=== PATIENT | female | born 1985 | race African-American/Black ===

== ENCOUNTER 2019-11-09 11:03 | Inpatient (IN) | payer OTHER ==
--- NOTE | 2019-11-09 11:10 | PDOC ---
History of Present Illness - General Chief Complaint: Syncope/Near Syncope Stated Complaint: PASSED OUT Time Seen by Provider: 11/09/19 11:07 - History of Present Illness Initial Comments: 11/09/19 12:02 34yo female with no pmhx presents for eval of multiple episodes of "blacking out" over the weekend. States for the last few weeks she has lost about 7 lbs unintentionally, has had urinary freq for about a week. States she feels cold all the time. Pt states she felt warm on saturday, checked her temperature and it was 99.5. States over the weekend she felt lightheaded, denies vertiginous symptoms and passed out about 4-5 times. States she was always sitting down or laying down when it would happen. Pt states nausea for about a week, no vomiting. Last bm was last night and normal. Denies cp/sob/palpitations. C/o lower leg pain. No cp/sob. No coughing. No sore throat, no rhinorrhea. No mathew. States today she was standing and when she passed out she fell to the ground landing on her back, poss hitting her head. Pt states she finished her menstrual cycle last week. No other complaints. States she has been eating normally, but complains she feels thirsty all the time. Past History - Medical History Allergies/Adverse Reactions: Allergies Allergy/AdvReac Type Severity Reaction Status Date / Time No Known Allergies Allergy Verified 11/09/19 11:05 Home Medications: Ambulatory Orders NK [No Known Home Medication] 08/23/19 COPD: No - Immunization History Immunization Up to Date: No - Psycho-Social/Smoking History Smoking History: Never smoked Have you smoked in the past 12 months: No Review of Systems - Review of Systems Able to Perform ROS?: Yes Is the patient limited Romansh proficient: No Constitutional: Yes: Fever, Unintentional Wgt. Loss. No: Chills HEENTM: No: Eye Pain, Blurred Vision, Ear Pain, Nose Congestion, Tinnitus, Thro at Pain Respiratory: Yes: Shortness of Breath. No: Cough, SOB at Rest, Wheezing, Productive cough Cardiac (ROS): Yes: Lightheadedness, Syncope. No: Chest Pain, Palpitations, Chest Tightness ABD/GI: Yes: Nausea. No: Diarrhea, Vomiting, Abdominal cramping : Yes: Frequency. No: Burning, Dysuria Musculoskeletal: No: Back Pain, Neck Pain Integumentary: No: Rash Neurological: No: Headache, Numbness, Paresthesia, Tingling, Weakness, Ataxia All Other Systems: Reviewed and Negative *Physical Exam - Vital Signs 11/09/19 12:08 Selected Entries 11/09/19 11/09/19 11/09/19 11:05 11:20 11:22 Temperature 99.6 F Pulse Rate 88 Pulse Rate [ 101 H Left side Sitting] Pulse Rate [ Left side Standing] Pulse Rate [ 85 Left side Supine] Pulse Rhythm [ Regular Apical] Respiratory 18 Rate Blood Pressure 109/64 Blood Pressure 110/66 [Left side Sitting] Blood Pressure [Left side Standing] Blood Pressure 109/59 L [Left side Supine] Blood Pressure 79 Mean O2 Sat by Pulse 100 Oximetry (%) Weight 80.286 kg 11/09/19 11:24 Temperature Pulse Rate Pulse Rate [ Left side Sitting] Pulse Rate [ 129 H Left side Standing] Pulse Rate [ Left side Supine] Pulse Rhythm [ Apical] Respiratory Rate Blood Pressure Blood Pressure [Left side Sitting] Blood Pressure 109/59 L [Left side Standing] Blood Pressure [Left side Supine] Blood Pressure Mean O2 Sat by Pulse Oximetry (%) Weight - Physical Exam General Appearance: Yes: Nourished, Appropriately Dressed, Other (ambulatory in the ER with a steady gait). No: Apparent Distress HEENT: positive: EOMI, TYLER, Normal Voice, TMs Normal, Pharynx Normal. negative: Nasal Congestion, Rhinorrhea Neck: positive: Supple. negative: Tender midline Respiratory/Chest: positive: Lungs Clear, Normal Breath Sounds. negative: Chest Tender, Respiratory Distress Cardiovascular: positive: Regular Rhythm, Regular Rate, S1, S2. negative: Edema Gastrointestinal/Abdominal: positive: Soft. negative: Guarding, Rebound, Tenderness Musculoskeletal: positive: Normal Inspection. negative: CVA Tenderness, Decreased Range of Motion Extremity: positive: Normal Capillary Refill, Normal Inspection, Normal Range of Motion, Other (finger splint to L index finger from prior tendon injury). 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, Fully Oriented, Alert, Normal Mood/Affect, Normal Response, Motor Strength 5/5 Heart Score/ECG Review - ECG Intrepretation Comment:: 11/09/19 12:09 sinus at 85, nl axis, nl interval, t wave inversions III which are nonspecific, no acute st changes ED Treatment Course - LABORATORY CBC & Chemistry Diagram: 11/09/19 11:40 11/09/19 11:40 Medical Decision Making - Medical Decision Making 11/09/19 12:10 a/p: 34yo female with syncope/urinary freq, increased thirst -concern for new onset dm vs thyroid vs viral syndrome -concern for uti -pt with + orthostatic vs -will send labs, ekg, cxr, head ct -will hydrate with ivf -will monitor on tele -given leg cramping and syncope will send dimer, no PE risk factors -will send vbg -urine preg neg, poc -will monitor and reassess 11/09/19 12:25 hgb 10 cxr clear 11/09/19 12:36 pt with uti on labs head ct neg labs pending 11/09/19 13:38 pt with 5 syncopal episodes over the weekend pt with uti and orthostatic hypotension pt agrees to stay for further eval case discussed with Silvia Lacey from [facility] who accepts pt to service 11/09/19 13:42 borderline dimer, will order ultrasound and ct pe after tsh results 11/09/19 14:[address] called poc urine preg neg 11/09/19 14:16 [facility] request consult to Dr. Sol rivera pt in ultrasound and then ct 11/09/19 15:15 no dvt 11/09/19 15:45 no dvt or pe Discharge - Discharge Information Problems reviewed: Yes Clinical Impression/Diagnosis: Syncope, UTI (urinary tract infection) Condition: Fair - Admission Yes - Follow up/Referral - Patient Discharge Instructions - Post Discharge Activity
--- NOTE | 2019-11-09 12:10 | EKG ---
Test Reason : Blood Pressure : / mmHG Vent. Rate : 085 BPM Atrial Rate : 085 BPM P-R Int : 134 ms QRS Dur : 082 ms QT Int : 356 ms P-R-T Axes : 064 072 039 degrees QTc Int : 423 ms NORMAL SINUS RHYTHM Nonspecific T changes NORMAL ECG NO PREVIOUS ECGS AVAILABLE Confirmed by Angelina Ortiz ([id number]) on 11/09/2019 12:09:53 PM Referred By: MD MCDANIEL Confirmed By:Angelina Ortiz
[2019-11-09 12:11] LABS: BASO % 0.6 % (0-2.0); EOS % 0.7 % (0-4.5); HEMOGLOBIN 10.3 GM/dl (10.7-15.3); LYMPH % 21.6 % (8-40); MCH 25.9 pg (25.7-33.7); MCHC 33.1 g/dl (32.0-36.0); MEAN CELL VOLUME 78.2 fl (80-96); MEAN PLT VOLUME 7.7 fl (7.5-11.1); NEUT % 64.1 % (42.8-82.8); PLATELET COUNT 366 K/MM3 (134-434); RBC 3.96 M/mm3 (3.60-5.2); RDW 16.4 % (11.6-15.6); WHITE BLOOD COUNT 7.7 K/mm3 (4.0-10.8)
[2019-11-09] MEDS ORDERED: SODIUM CHLORIDE 0.9% 1000 ML INFUS.BAG IV ONE ×2 (12:11)
[2019-11-09 12:25] LABS: ACTIVATED PTT 23.9 SECONDS (25.2-36.5)
[2019-11-09 12:29] LABS: INR 1.54 (0.82-1.09); PROTHROMBIN TIME (PATIENT) 17.1 SEC (10.2-13.0)
[2019-11-09 12:34] LABS: EPITHELIAL CELLS MODERATE /hpf
[2019-11-09] MEDS ORDERED: CEFTRIAXONE 1 GM in DEXTROSE 5%-WATER - 100 ML IVPB ONE (12:35)
[2019-11-09 12:36] LABS: ALBUMIN 3.6 g/dl (3.4-5.0); BILIRUBIN,TOTAL 0.5 mg/dl (0.2-1); CALCIUM 9.4 mg/dl (8.5-10); CREATININE 0.9 mg/dl (0.55-1.3); POTASSIUM 3.7 mmol/L (3.5-5.1); TOT PROT 7.7 g/dl (6.4-8.2)
[2019-11-09] MEDS ORDERED: cefTRIAXone SODIUM 1 GM VIAL ONE (12:50)
[2019-11-09 13:20] LABS: VENOUS BASE EXCESS 1.2 mmol/L (-2-2); VENOUS O2 SATURATION 61.1 % (70-80); VENOUS PCO2 43.9 mmHg (38-52); VENOUS PH 7.396 (7.310-7.410)
[2019-11-09] MEDS ORDERED: ACETAMINOPHEN 500 MG TABLET (FP) ONE (15:47)
[2019-11-09] MEDS ORDERED: ACETAMINOPHEN 500 MG TABLET (FP) PO ONE (15:47)
--- NOTE | 2019-11-09 16:08 | HP ---
CHIEF COMPLAINT: Syncope PCP: [facility] HISTORY OF PRESENT ILLNESS: 34 year-old female with a PMH significant for anemia, presents for eval of multiple episodes of "blacking out" over the weekend. States for the last few weeks she has lost about 7 lbs unintentionally, has had urinary frequency for about a week. Episodes of sweats and chills. Episodes of feeling SOB which will suddenly overtake her. She states she will be fine and then find herself gasping for air and she has to concentrate on her breathing to catch her breath. Has lost her appetite, and has altered sense of taste (cannot taste sweet). Over the weekend she felt lightheaded and passed out about 4-5 times. States today she was standing and when she passed out she fell to the ground landing on her back, possibly hitting her head. She also reports headache at the time of this admission. 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[place], cares for their 21-month old child; mother in that household goes out to work, father works out of the home; no known COVID positive exposure Smoking: no Alcohol: no Drugs: no Allergies No Known Allergies Allergy (Verified 11/09/19 11:05) HOME MEDICATIONS: Home Medications Medication Instructions Recorded NK [No Known Home Medication] 08/23/19 REVIEW OF SYSTEMS CONSTITUTIONAL: +sweats, chills, loss of appetite, weight loss, fatigue Absent: diaphoresis, generalized weakness, malaise HEENT: Absent: rhinorrhea, nasal congestion, throat pain, throat swelling, difficulty swallowing, mouth swelling, ear pain, eye pain, visual changes CARDIOVASCULAR: Absent: chest pain, syncope, palpitations, irregular heart rate, lightheadedness, peripheral edema RESPIRATORY: +shortness of breath Absent: cough, dyspnea with exertion, orthopnea, wheezing, stridor, hemoptysis GASTROINTESTINAL: +nausea Absent: abdominal pain, abdominal distension, vomiting, diarrhea, constipation, melena, hematochezia GENITOURINARY: +frequency, malodorous urine Absent: dysuria, urgency, hesitancy, hematuria, flank pain, genital pain MUSCULOSKELETAL: Absent: myalgia, arthralgia, joint swelling, back pain, neck pain SKIN: Absent: rash, itching, pallor HEMATOLOGIC/IMMUNOLOGIC: Absent: easy bleeding, easy bruising, lymphadenopathy, frequent infections ENDOCRINE: Absent: unexplained weight gain, unexplained weight loss, heat intolerance, cold intolerance NEUROLOGIC: +weakness, dizziness, syncope Absent: headache, focal weakness or paresthesias, dizziness, unsteady gait, seizure, mental status changes, bladder or bowel incontinence PSYCHIATRIC: Absent: anxiety, depression, suicidal or homicidal ideation, hallucinations. PHYSICAL EXAMINATION Vital Signs - 24 hr 11/09/19 11/09/19 11/09/19 11:05 11:20 11:22 Temperature 99.6 F Pulse Rate 88 Pulse Rate [ Apical] Pulse Rate [ 101 H Left side Sitting] Pulse Rate [ Left side Standing] Pulse Rate [ 85 Left side Supine] Respiratory 18 Rate Blood Pressure 109/64 Blood Pressure [Left Arm] Blood Pressure 110/66 [Left side Sitting] Blood Pressure [Left side Standing] Blood Pressure 109/59 L [Left side Supine] O2 Sat by Pulse 100 Oximetry (%) 11/09/19 11/09/19 11/09/19 11:24 13:34 15:45 Temperature 100.0 F H Pulse Rate Pulse Rate [ 68 84 Apical] Pulse Rate [ Left side Sitting] Pulse Rate [ 129 H Left side Standing] Pulse Rate [ Left side Supine] Respiratory 18 18 Rate Blood Pressure Blood Pressure 111/69 121/75 [Left Arm] Blood Pressure [Left side Sitting] Blood Pressure 109/59 L [Left side Standing] Blood Pressure [Left side Supine] O2 Sat by Pulse 100 100 Oximetry (%) GENERAL: Awake, alert, and fully oriented, in no acute distress. HEAD: Normal with no signs of trauma. EYES: Pupils equal, round and reactive to light, extraocular movements intact, sclera anicteric, conjunctiva clear. No lid lag. EARS, NOSE, THROAT: Ears normal, nares patent, oropharynx clear without exudates. Moist mucous membranes. NECK: Normal range of motion, supple without lymphadenopathy, JVD, or masses. LUNGS: Breath sounds equal, clear to auscultation bilaterally. No wheezes, and no crackles. No accessory muscle use. HEART: Regular rate and rhythm, normal S1 and S2 ABDOMEN: Soft, nontender, not distended, normoactive bowel sounds, no guarding, no rebound, no masses. No hepatomegaly or splenomegaly. UPPER EXTREMITIES: 2+ pulses, warm, well-perfused. No cyanosis. No clubbing. No peripheral edema. LOWER EXTREMITIES: 2+ pulses, warm, well-perfused. No calf tenderness. No peripheral edema. NEUROLOGICAL: Cranial nerves II-XII intact. Normal speech. Laboratory Results - last 24 hr 11/09/19 11/09/19 11/09/19 11:35 11:40 11:40 WBC 7.7 RBC 3.96 Hgb 10.3 L Hct 31.0 L MCV 78.2 L MCH 25.9 MCHC 33.1 RDW 16.4 H Plt Count 366 MPV 7.7 Absolute Neuts (auto) 4.9 Neutrophils % 64.1 Lymphocytes % 21.6 Monocytes % 13.0 H Eosinophils % 0.7 Basophils % 0.6 PT with INR 17.1 H INR 1.54 H PTT (Actin FS) 23.9 L D-Dimer VBG pH POC VBG pCO2 POC VBG pO2 VBG HCO3 VBG O2 Sat (Juan Jose) VBG Base Excess Sodium Potassium Chloride Carbon Dioxide Anion Gap BUN Creatinine Est GFR (CKD-EPI)AfAm Est GFR (CKD-EPI)NonAf Random Glucose Calcium Total Bilirubin AST ALT Alkaline Phosphatase Creatine Kinase Troponin I Total Protein Albumin TSH Urine Color Yellow Urine Appearance Slightly Urine pH 5.5 Urine Protein Negative Urine Glucose (UA) Negative Urine Ketones Negative Urine Blood Trace-lysed Urine Nitrite Positive H Urine Bilirubin Negative Urine Urobilinogen 0.2 Ur Leukocyte Esterase 1+ Urine RBC 2-5 Urine WBC 20-40 Ur Transition Epith Cell Moderate Urine Bacteria Many 11/09/19 11/09/19 11/09/19 11:40 11:40 11:40 WBC RBC Hgb Hct MCV MCH MCHC RDW Plt Count MPV Absolute Neuts (auto) Neutrophils % Lymphocytes % Monocytes % Eosinophils % Basophils % PT with INR INR PTT (Actin FS) D-Dimer VBG pH 7.396 POC VBG pCO2 43.9 POC VBG pO2 32.1 VBG HCO3 26.3 VBG O2 Sat (Juan Jose) 61.1 L VBG Base Excess 1.2 Sodium 138 Potassium 3.7 Chloride 104 Carbon Dioxide 23 Anion Gap 11 BUN 10.0 Creatinine 0.9 Est GFR (CKD-EPI)AfAm 98.06 Est GFR (CKD-EPI)NonAf 84.60 Random Glucose 65 L Calcium 9.4 Total Bilirubin 0.5 AST 13 L ALT 11 L Alkaline Phosphatase 44 L Creatine Kinase 56 Troponin I < 0.03 Total Protein 7.7 Albumin 3.6 TSH 0.68 Urine Color Urine Appearance Urine pH Urine Protein Urine Glucose (UA) Urine Ketones Urine Blood Urine Nitrite Urine Bilirubin Urine Urobilinogen Ur Leukocyte Esterase Urine RBC Urine WBC Ur Transition Epith Cell Urine Bacteria 11/09/19 11:48 WBC RBC Hgb Hct MCV MCH MCHC RDW Plt Count MPV Absolute Neuts (auto) Neutrophils % Lymphocytes % Monocytes % Eosinophils % Basophils % PT with INR INR PTT (Actin FS) D-Dimer 506 H VBG pH POC VBG pCO2 POC VBG pO2 VBG HCO3 VBG O2 Sat (Juan Jose) VBG Base Excess Sodium Potassium Chloride Carbon Dioxide Anion Gap BUN Creatinine Est GFR (CKD-EPI)AfAm Est GFR (CKD-EPI)NonAf Random Glucose Calcium Total Bilirubin AST ALT Alkaline Phosphatase Creatine Kinase Troponin I Total Protein Albumin TSH Urine Color Urine Appearance Urine pH Urine Protein Urine Glucose (UA) Urine Ketones Urine Blood Urine Nitrite Urine Bilirubin Urine Urobilinogen Ur Leukocyte Esterase Urine RBC Urine WBC Ur Transition Epith Cell Urine Bacteria ASSESSMENT/PLAN: 34 year-old female with PMH significant for anemia, admitted for syncope, UTI, fever, r/o COVID. Syncope --troponin neg x 3 --ECG: no acute ischemia --telemetry monitoring --echo: LV normal, RV normal, mild TR --US carotids: no significant stenosis; high speed systolic velocity both common carotids and proximal left internal carotid, may be related to HTN --cardiology following --CXR unremarkable --CTA negative for PE --US b/l LE: negative for DVT --orthostatics Microcytic anemia --Hgb 10.3, no baseline for comparison; was told 10 years ago she was anemic, has not been treated --menses are regular, LMP early last week; has IUD --iron studies LFGNB UTI --fever to 103.1 --continue ceftriaxone r/o COVID --swabbed 11/08 pending --episodes of SOB, altered taste, loss of appetite, weight loss over past few weeks, headache, fever --chest imaging unremarkable --empiric azithro started --albuterol inhaler FEN Fluids: NS@100mL/hr Electrolytes: replete as indicated Nutrition: regular diet DVT prophylaxis: subq lovenox Dispo: continues to require inpatient care. Full code. Visit type - Emergency Visit Emergency Visit: Yes ED Registration Date: 11/09/19 Care time: The patient presented to the Emergency Department on the above date and was hospitalized for further evaluation of their emergent condition. - New Patient This patient is new to me today: Yes Date on this admission: 11/10/19 - Critical Care Critical Care patient: No
[2019-11-09] MEDS ORDERED: SODIUM CHLORIDE 1,000 ML IV SCH (16:15)
[2019-11-09 19:13] VITALS: BMI 23.8
--- NOTE | 2019-11-09 23:19 | HOSP ---
Subjective - Review of Symptoms Events since last encounter: hospitalist encounter Notified by the RN that the patient reports having chest pain, was asked to assess Arrived to bedside, patient is AAOx3, reports midsternal CP increased with deep inspiration. Patient examined see EMR Plan: EKG stat Troponin I stat Cardiovascular: Yes: Chest Pain Physical Examination Vital Signs: Vital Signs Temperature 99.4 F 11/09/19 21:00 Pulse Rate 80 11/09/19 21:00 Respiratory Rate 18 11/09/19 21:00 Blood Pressure 113/64 11/09/19 21:00 O2 Sat by Pulse Oximetry (%) 100 11/09/19 21:00 Constitutional: Yes: Moderate Distress, Thin Eyes: Yes: Conjunctiva Clear, EOM Intact, PERRL HENT: Yes: WNL, Atraumatic, Normocephalic Neck: Yes: WNL, Supple, Trachea Midline Cardiovascular: Yes: Regular Rate and Rhythm, S1, S2, Other (CP reproducible on palpation) Respiratory: Yes: Diminished (bases) Gastrointestinal: Yes: Normal Bowel Sounds, Soft ...Rectal Exam: Yes: Deferred Renal/: Yes: WNL Breast(s): Yes: WNL Musculoskeletal: Yes: Muscle Pain Extremities: Yes: WNL Edema: No Peripheral Pulses WNL: Yes Neurological: Yes: Alert, Oriented, Cran Nerves II-XII Intact ...Motor Strength: WNL Psychiatric: Yes: WNL, Alert, Oriented Labs: CBC, BMP 11/09/19 11:40 11/09/19 11:40 Laboratory Results - last 24 hr 11/09/19 11/09/19 11/09/19 11:35 11:40 11:40 WBC 7.7 RBC 3.96 Hgb 10.3 L Hct 31.0 L MCV 78.2 L MCH 25.9 MCHC 33.1 RDW 16.4 H Plt Count 366 MPV 7.7 Absolute Neuts (auto) 4.9 Neutrophils % 64.1 Lymphocytes % 21.6 Monocytes % 13.0 H Eosinophils % 0.7 Basophils % 0.6 PT with INR 17.1 H INR 1.54 H PTT (Actin FS) 23.9 L D-Dimer VBG pH POC VBG pCO2 POC VBG pO2 VBG HCO3 VBG O2 Sat (Juan Jose) VBG Base Excess Sodium Potassium Chloride Carbon Dioxide Anion Gap BUN Creatinine Est GFR (CKD-EPI)AfAm Est GFR (CKD-EPI)NonAf POC Glucometer Random Glucose Hemoglobin A1c % Calcium Total Bilirubin AST ALT Alkaline Phosphatase Creatine Kinase Troponin I Total Protein Albumin TSH Serum , Qual Urine Color Yellow Urine Appearance Slightly Urine pH 5.5 Urine Protein Negative Urine Glucose (UA) Negative Urine Ketones Negative Urine Blood Trace-lysed Urine Nitrite Positive H Urine Bilirubin Negative Urine Urobilinogen 0.2 Ur Leukocyte Esterase 1+ Urine RBC 2-5 Urine WBC 20-40 Ur Transition Epith Cell Moderate Urine Bacteria Many 11/09/19 11/09/19 11/09/19 11:40 11:40 11:40 WBC RBC Hgb Hct MCV MCH MCHC RDW Plt Count MPV Absolute Neuts (auto) Neutrophils % Lymphocytes % Monocytes % Eosinophils % Basophils % PT with INR INR PTT (Actin FS) D-Dimer VBG pH 7.396 POC VBG pCO2 43.9 POC VBG pO2 32.1 VBG HCO3 26.3 VBG O2 Sat (Juan Jose) 61.1 L VBG Base Excess 1.2 Sodium 138 Potassium 3.7 Chloride 104 Carbon Dioxide 23 Anion Gap 11 BUN 10.0 Creatinine 0.9 Est GFR (CKD-EPI)AfAm 98.06 Est GFR (CKD-EPI)NonAf 84.60 POC Glucometer Random Glucose 65 L Hemoglobin A1c % Calcium 9.4 Total Bilirubin 0.5 AST 13 L ALT 11 L Alkaline Phosphatase 44 L Creatine Kinase 56 Troponin I < 0.03 Total Protein 7.7 Albumin 3.6 TSH 0.68 Serum , Qual Urine Color Urine Appearance Urine pH Urine Protein Urine Glucose (UA) Urine Ketones Urine Blood Urine Nitrite Urine Bilirubin Urine Urobilinogen Ur Leukocyte Esterase Urine RBC Urine WBC Ur Transition Epith Cell Urine Bacteria 11/09/19 11/09/19 11/09/19 11:40 11:48 17:45 WBC RBC Hgb Hct MCV MCH MCHC RDW Plt Count MPV Absolute Neuts (auto) Neutrophils % Lymphocytes % Monocytes % Eosinophils % Basophils % PT with INR INR PTT (Actin FS) D-Dimer 506 H VBG pH POC VBG pCO2 POC VBG pO2 VBG HCO3 VBG O2 Sat (Juan Jose) VBG Base Excess Sodium Potassium Chloride Carbon Dioxide Anion Gap BUN Creatinine Est GFR (CKD-EPI)AfAm Est GFR (CKD-EPI)NonAf POC Glucometer Random Glucose Hemoglobin A1c % 5.6 Calcium Total Bilirubin AST ALT Alkaline Phosphatase Creatine Kinase Troponin I < 0.03 Total Protein Albumin TSH Serum , Qual Urine Color Urine Appearance Urine pH Urine Protein Urine Glucose (UA) Urine Ketones Urine Blood Urine Nitrite Urine Bilirubin Urine Urobilinogen Ur Leukocyte Esterase Urine RBC Urine WBC Ur Transition Epith Cell Urine Bacteria 11/09/19 11/09/19 11/09/19 21:24 23:30 23:30 WBC RBC Hgb Hct MCV MCH MCHC RDW Plt Count MPV Absolute Neuts (auto) Neutrophils % Lymphocytes % Monocytes % Eosinophils % Basophils % PT with INR INR PTT (Actin FS) D-Dimer VBG pH POC VBG pCO2 POC VBG pO2 VBG HCO3 VBG O2 Sat (Juan Jose) VBG Base Excess Sodium Potassium Chloride Carbon Dioxide Anion Gap BUN Creatinine Est GFR (CKD-EPI)AfAm Est GFR (CKD-EPI)NonAf POC Glucometer 96 Random Glucose Hemoglobin A1c % Calcium Total Bilirubin AST ALT Alkaline Phosphatase Creatine Kinase Troponin I < 0.03 Total Protein Albumin TSH Serum , Qual Negative Urine Color Urine Appearance Urine pH Urine Protein Urine Glucose (UA) Urine Ketones Urine Blood Urine Nitrite Urine Bilirubin Urine Urobilinogen Ur Leukocyte Esterase Urine RBC Urine WBC Ur Transition Epith Cell Urine Bacteria Current Medications Generic Name Dose Route Start Last Admin Trade Name Freq PRN Reason Stop Dose Admin Acetaminophen 650 mg 11/10/19 00:00 Tylenol - PO Q6H PRN PAIN LEVEL 4 - 6 Sodium Chloride 1,000 mls @ 100 mls/hr 11/09/19 16:15 11/09/19 17:22 Normal Saline - IV 100 mls/hr [facility] Administration Hospitalist Encounter Assessment: This is a 34 y/o female with no significant PMHx. Admitted for Syncope, Anemia. COVID PCR-pending Outcome: EKG reviewed- NSR no ST or TWI. Troponin I #3 <0.03, Patient now febrile 103.0- Tylenol ordered, COVID labs, Lactic Acid, Azithromycin one dose now Will advise Day Team of overnight events, will continue to monitor. Critical Care Total Critical Care Time (in minutes): 35 Critical Care Statement: The care of this patient involved high complexity decision making to prevent further life threatening deterioration of the pat ient's condition and/or to evaluate & treat vital organ system(s) failure or risk of failure.
[2019-11-09] MEDS ORDERED: ACETAMINOPHEN 325 MG TABLET (FP) PO PRN (23:59)
[2019-11-09] MEDS ORDERED: ACETAMINOPHEN INJECTION 100 ML IVPB ONE (23:59)
[2019-11-10] MEDS ORDERED: ACETAMINOPHEN 500 MG TABLET (FP) PO ONE
[2019-11-10] MEDS ORDERED: AZITHROMYCIN IVPB 500 MG in DEXTROSE 5%-WATER - 250 ML IVPB ONE (00:03)
[2019-11-10] MEDS ORDERED: AZITHROMYCIN IVPB 500 MG/250 ML BAG IVPB ONE (00:30)
[2019-11-10 08:17] LABS: BASO % 0.5 % (0-2.0); EOS % 1.2 % (0-4.5); HEMATOCRIT 30.2 % (32.4-45.2); HEMOGLOBIN 9.5 GM/dl (10.7-15.3); LYMPH % 27.8 % (8-40); MCH 25.3 pg (25.7-33.7); MCHC 31.6 g/dl (32.0-36.0); MEAN CELL VOLUME 80.2 fl (80-96); MONO % 13.5 % (3.8-10.2); PLATELET COUNT 293 K/MM3 (134-434); RBC 3.76 M/mm3 (3.60-5.2); WHITE BLOOD COUNT 6.1 K/mm3 (4.0-10.8)
[2019-11-10 08:20] LABS: BILIRUBIN,TOTAL 0.4 mg/dl (0.2-1); CALCIUM 8.6 mg/dl (8.5-10); CREATININE 0.7 mg/dl (0.55-1.3); PHOSPHOROUS 3.9 mg/dl (2.5-4.9); POTASSIUM 3.9 mmol/L (3.5-5.1); TOT PROT 6.6 g/dl (6.4-8.2)
[2019-11-10] MEDS ORDERED: SODIUM CHLORIDE 1,000 ML IV STA (10:13)
[2019-11-10] MEDS ORDERED: CEFTRIAXONE 1 GM in DEXTROSE 5%-WATER - 50 ML IVPB SCH (10:30)
--- NOTE | 2019-11-10 11:01 | CON.CARD ---
Consult Consult Specialty:: Cardiology Referred by:: Medicine Reason for Consultation:: syncope, chest pain - History of Present Illness Chief Complaint: syncope History of Present Illness: 34 F no significant PMH p/w episodes of blacking out prior to admission. Over last few weeks lost 7 lbs, had increased urinary frequency over the last week and felt cold. On Saturday had temp 99.5, over the weekend felt lightheaded and passed out 4-5 times while sitting or lying down. On day of admission was standing and fell to the ground after passing out. no prior syncopal episodes. Had epsode of chest pain last night when taking deep breaths. CTA chest neg for PE. This morning feels tired, no chest pain, palps, dizziness, dyspnea - Past Medical History ...LMP: 11/01/19 ...: No - Alcohol/Substance Use Hx Alcohol Use: No - Smoking History Smoking history: Never smoked Have you smoked in the past 12 months: No Home Medications - Allergies Allergies/Adverse Reactions: Allergies Allergy/AdvReac Type Severity Reaction Status Date / Time No Known Allergies Allergy Verified 11/09/19 11:05 - Home Medications Home Medications: Ambulatory Orders NK [No Known Home Medication] 08/23/19 Family Medical History Family History: Unremarkable Review of Systems - Review of Systems Constitutional: reports: No Symptoms Eyes: reports: No Symptoms HENT: reports: No Symptoms Neck: reports: No Symptoms Cardiovascular: reports: No Symptoms Respiratory: reports: No Symptoms Gastrointestinal: reports: No Symptoms Genitourinary: reports: No Symptoms Musculoskeletal: reports: No Symptoms Integumentary: reports: No Symptoms Neurological: reports: No Symptoms Endocrine: reports: No Symptoms Hematology/Lymphatic: reports: No Symptoms Psychiatric: reports: No Symptoms Vital Signs: Vital Signs Temperature 98.4 F 11/10/19 06:00 Pulse Rate 61 11/10/19 06:00 Respiratory Rate 18 11/10/19 06:00 Blood Pressure 91/50 L 11/10/19 06:00 O2 Sat by Pulse Oximetry (%) 99 11/10/19 06:00 Constitutional: Yes: Well Nourished, No Distress, Calm Eyes: Yes: Conjunctiva Clear, EOM Intact HENT: Yes: Atraumatic, Normocephalic Neck: Yes: Supple, Trachea Midline Respiratory: Yes: Regular, CTA Bilaterally Gastrointestinal: Yes: Normal Bowel Sounds, Soft Cardiovascular: Yes: Regular Rate and Rhythm JVD: No Heart Sounds: Yes: S1, S2 Musculoskeletal: No: Back Pain Extremities: No: Cold Edema: No Integumentary: No: Jaundice Neurological: Yes: Alert, Oriented Psychiatric: No: Agitated - Other Data Labs, Other Data: CBC, BMP 11/10/19 07:08 11/10/19 07:08 INR, PTT INR 1.54 (0.82-1.09) H 11/09/19 11:40 Troponin, BNP 11/09/19 11/09/19 11/09/19 11:40 17:45 23:30 Troponin I < 0.03 < 0.03 < 0.03 Troponin, BNP 11/09/19 11/09/19 11/09/19 11:40 17:45 23:30 Troponin I < 0.03 < 0.03 < 0.03 Assessment/Plan EKG: sinus, nl intervals, no ischemic changes CTA chest: no PE, no acute pathology tele: sinus, ST syncope - trop neg x 3, EKG no ischemic changes - not c/w ACS - echo pending - carotid ultrasound no significant stenosis - likely vasovagal vs orthostatic in setting of underlying infection - infectious workup per primary, COVID pending UTI - abx per primary anemia - manage per primary
[2019-11-10] MEDS ORDERED: cefTRIAXone SODIUM 1 GM VIAL ONE (11:17)
[2019-11-10] MEDS ORDERED: DEXTROSE 5%-WATER - 50 ML IVPB ONE (11:17)
--- NOTE | 2019-11-10 12:06 | EKG ---
Test Reason : Blood Pressure : / mmHG Vent. Rate : 091 BPM Atrial Rate : 091 BPM P-R Int : 128 ms QRS Dur : 076 ms QT Int : 342 ms P-R-T Axes : 070 079 044 degrees QTc Int : 420 ms NORMAL SINUS RHYTHM NORMAL ECG WHEN COMPARED WITH ECG OF 09-NOV-2019 11:26, NO SIGNIFICANT CHANGE WAS FOUND Confirmed by MD Wang Daniel ([id number]) on 11/10/2019 12:05:39 PM Referred By: PAPO TONY Confirmed By:Chip Wang MD
--- NOTE | 2019-11-10 12:44 | ECHO ---
Name: GRICELDA MOREIRA Exam:Adult Echocardiogram Study Date: 11/10/2019 09:28 AM Age: 34 yrs Height: 73 in Weight: 179 lb BSA: 2.0 m2 MMode/2D Measurements & Calculations IVSd: 0.81 cm Ao root diam: 2.6 cm LVIDd: 4.8 cm LA dimension: 2.9 cm LVIDs: 3.2 cm ACS: 1.8 cm LVPWd: 0.79 cm EDV(Teich): 108.3 ml LVOT diam: 2.0 cm ESV(Teich): 42.2 ml Doppler Measurements & Calculations MV E max luis: 72.9 cm/sec MV A max luis: 62.4 cm/sec MV dec slope: 457.1 cm/sec2 MV E/A: 1.2 Ao V2 max: 111.0 cm/sec LV V1 max P.5 mmHg Ao max P.9 mmHg LV V1 mean P.0 mmHg Ao V2 mean: 77.5 cm/sec LV V1 max: 94.2 cm/sec Ao mean P.7 mmHg LV V1 mean: 65.5 cm/sec Ao V2 VTI: 20.6 cm LV V1 VTI: 16.8 cm RYAN(I,D): 2.7 cm2 RYAN(V,D): 2.8 cm2 SV(LVOT): 55.3 ml TR max luis: 164.0 cm/sec TR max P.9 mmHg PA V2 max: 79.8 cm/sec PA max P.6 mmHg Left Ventricle The left ventricular size, thickness and function are normal. Ejection Fraction = 61. Right Ventricle The right ventricle is normal in size and function. Atria Normal left and right atrial size and function. Mitral Valve The mitral valve is normal in structure and function. Tricuspid Valve The tricuspid valve is normal in structure and function. There is mild tricuspid regurgitation. PASP 18 mmHg. Aortic Valve The aortic valve is normal in structure and function. Pulmonic Valve The pulmonic valve is normal in structure and function. Great Vessels The aortic root is normal size. Pericardium/Pleura There is no pericardial effusion. Interpretation Summary The left ventricular size, thickness and function are normal Ejection Fraction = 61. The right ventricle is normal in size and function. Normal left and right atrial size and function. The mitral valve is normal in structure and function. The tricuspid valve is normal in structure and function. There is mild tricuspid regurgitation. PASP 18 mmHg The aortic valve is normal in structure and function. The pulmonic valve is normal in structure and function. The aortic root is normal size. There is no pericardial effusion. MD Chip Wang 11/10/2019 12:43 PM
--- NOTE | 2019-11-10 13:22 | PN ---
Physical Exam: SUBJECTIVE: Patient seen and examined OBJECTIVE: Vital Signs Period Temp Pulse Resp BP Sys/Amador Pulse Ox Last 24 Hr 98.3 F-103.1 F 61-93 17-18 91-121/50-75 95-100 GENERAL: The patient is awake, alert, and fully oriented, in no acute distress. HEAD: Normal with no signs of trauma. EYES: PERRL, extraocular movements intact, sclera anicteric, conjunctiva clear. No ptosis. ENT: Ears normal, nares patent, oropharynx clear without exudates, moist mucous membranes. NECK: Trachea midline, full range of motion, supple. LUNGS: Breath sounds equal, clear to auscultation bilaterally, no wheezes, no crackles, no accessory muscle use. HEART: Regular rate and rhythm, S1, S2 without murmur, rub or gallop. ABDOMEN: Soft, nontender, nondistended, normoactive bowel sounds, no guarding, no rebound, no hepatosplenomegaly, no masses. EXTREMITIES: 2+ pulses, warm, well-perfused, no edema. NEUROLOGICAL: Cranial nerves II through XII grossly intact. Normal speech, gait not observed. PSYCH: Normal mood, normal affect. SKIN: Warm, dry, normal turgor, no rashes or lesions noted Laboratory Results - last 24 hr 11/09/19 11/09/19 11/09/19 11:39 11:40 11:40 WBC RBC Hgb Hct MCV MCH MCHC RDW Plt Count MPV Absolute Neuts (auto) Neutrophils % Lymphocytes % Monocytes % Eosinophils % Basophils % D-Dimer Sodium Potassium Chloride Carbon Dioxide Anion Gap BUN Creatinine Est GFR (CKD-EPI)AfAm Est GFR (CKD-EPI)NonAf POC Glucometer Random Glucose Hemoglobin A1c % 5.6 Lactic Acid Calcium Phosphorus Magnesium Ferritin Total Bilirubin AST ALT Alkaline Phosphatase LD Total Troponin I C-Reactive Protein Total Protein Albumin TSH 0.68 Serum , Qual POC Urine HCG, Qual Negative 11/09/19 11/09/19 11/09/19 11:48 17:42 17:45 WBC RBC Hgb Hct MCV MCH MCHC RDW Plt Count MPV Absolute Neuts (auto) Neutrophils % Lymphocytes % Monocytes % Eosinophils % Basophils % D-Dimer 506 H Sodium Potassium Chloride Carbon Dioxide Anion Gap BUN Creatinine Est GFR (CKD-EPI)AfAm Est GFR (CKD-EPI)NonAf POC Glucometer 119 Random Glucose Hemoglobin A1c % Lactic Acid Calcium Phosphorus Magnesium Ferritin Total Bilirubin AST ALT Alkaline Phosphatase LD Total Troponin I < 0.03 C-Reactive Protein Total Protein Albumin TSH Serum , Qual POC Urine HCG, Qual 11/09/19 11/09/19 11/09/19 21:24 23:30 23:30 WBC RBC Hgb Hct MCV MCH MCHC RDW Plt Count MPV Absolute Neuts (auto) Neutrophils % Lymphocytes % Monocytes % Eosinophils % Basophils % D-Dimer Sodium Potassium Chloride Carbon Dioxide Anion Gap BUN Creatinine Est GFR (CKD-EPI)AfAm Est GFR (CKD-EPI)NonAf POC Glucometer 96 Random Glucose Hemoglobin A1c % Lactic Acid Calcium Phosphorus Magnesium Ferritin Total Bilirubin AST ALT Alkaline Phosphatase LD Total Troponin I < 0.03 C-Reactive Protein Total Protein Albumin TSH Serum , Qual Negative POC Urine HCG, Qual 11/10/19 11/10/19 11/10/19 02:20 05:59 07:08 WBC 6.1 RBC 3.76 Hgb 9.5 L Hct 30.2 L MCV 80.2 MCH 25.3 L MCHC 31.6 L RDW 16.0 H Plt Count 293 MPV 8.0 Absolute Neuts (auto) 3.5 Neutrophils % 57.0 Lymphocytes % 27.8 Monocytes % 13.5 H Eosinophils % 1.2 Basophils % 0.5 D-Dimer Sodium Potassium Chloride Carbon Dioxide Anion Gap BUN Creatinine Est GFR (CKD-EPI)AfAm Est GFR (CKD-EPI)NonAf POC Glucometer 102 72 Random Glucose Hemoglobin A1c % Lactic Acid Calcium Phosphorus Magnesium Ferritin Total Bilirubin AST ALT Alkaline Phosphatase LD Total Troponin I C-Reactive Protein Total Protein Albumin TSH Serum , Qual POC Urine HCG, Qual 11/10/19 11/10/19 11/10/19 07:08 07:08 07:08 WBC RBC Hgb Hct MCV MCH MCHC RDW Plt Count MPV Absolute Neuts (auto) Neutrophils % Lymphocytes % Monocytes % Eosinophils % Basophils % D-Dimer 548 H Sodium 138 Potassium 3.9 Chloride 105 Carbon Dioxide 23 Anion Gap 10 BUN 8.0 Creatinine 0.7 Est GFR (CKD-EPI)AfAm 132.87 Est GFR (CKD-EPI)NonAf 114.64 POC Glucometer Random Glucose 90 Hemoglobin A1c % Lactic Acid Calcium 8.6 Phosphorus 3.9 Magnesium 2.0 Ferritin 38.7 Total Bilirubin 0.4 AST 11 L ALT 10 L Alkaline Phosphatase 43 L LD Total 95 Troponin I C-Reactive Protein 7.3 H Total Protein 6.6 Albumin 3.0 L TSH Serum , Qual POC Urine HCG, Qual 11/10/19 07:08 WBC RBC Hgb Hct MCV MCH MCHC RDW Plt Count MPV Absolute Neuts (auto) Neutrophils % Lymphocytes % Monocytes % Eosinophils % Basophils % D-Dimer Sodium Potassium Chloride Carbon Dioxide Anion Gap BUN Creatinine Est GFR (CKD-EPI)AfAm Est GFR (CKD-EPI)NonAf POC Glucometer Random Glucose Hemoglobin A1c % Lactic Acid 0.7 Calcium Phosphorus Magnesium Ferritin Total Bilirubin AST ALT Alkaline Phosphatase LD Total Troponin I C-Reactive Protein Total Protein Albumin TSH Serum , Qual POC Urine HCG, Qual Active Medications Generic Name Dose Route Start Last Admin Trade Name Freq PRN Reason Stop Dose Admin Acetaminophen 650 mg 11/10/19 00:00 Tylenol - PO Q6H PRN PAIN LEVEL 4 - 6 Sodium Chloride 1,000 mls @ 100 mls/hr 11/09/19 16:15 11/09/19 17:22 Normal Saline - IV 100 mls/hr ASDIR ALEAH Administration Ceftriaxone Sodium 1 gm/ 50 mls @ 100 mls/hr 11/10/19 10:30 11/10/19 11:26 Dextrose IVPB 100 mls/hr DAILY ALEAH Administration Protocol Azithromycin 250 mg/ Dextrose 250 mls @ 250 mls/hr 11/10/19 22:00 IVPB 11/13/19 22:59 DAILY@2200 [facility] ASSESSMENT/PLAN:
[2019-11-10] MEDS: ALBUTEROL SO4 HFA INHALER IH SCH ×3 (16:26→22:07)
[2019-11-10] MEDS: ENOXAPARIN NA (PORCINE) 40 MG/0.4 ML DISP.SYRIN SQ SCH (16:26)
[2019-11-10] MEDS ORDERED: ACETAMINOPHEN 325 MG TABLET (FP) PO PRN ×3 (16:36→20:34)
[2019-11-10] MEDS: SODIUM CHLORIDE 1,000 ML IV SCH (19:08)
--- NOTE | 2019-11-10 21:43 | HOSP ---
Subjective - Review of Symptoms Events since last encounter: hospitalist encounter Patient transferred from [facility] to Telemetry for Chest Pain, Tachycardia, and Suspected COVID-19 Infection Physical Examination Vital Signs: Vital Signs Temperature 100.7 F H 11/10/19 18:00 Pulse Rate 96 H 11/10/19 18:00 Respiratory Rate 18 11/10/19 18:00 Blood Pressure 107/64 11/10/19 18:00 O2 Sat by Pulse Oximetry (%) 99 11/10/19 16:00 Constitutional: Yes: Well Nourished, No Distress, Calm, Thin Eyes: Yes: Conjunctiva Clear, EOM Intact, PERRL HENT: Yes: WNL, Atraumatic, Normocephalic Neck: Yes: WNL, Supple, Trachea Midline Cardiovascular: Yes: WNL, Regular Rate and Rhythm, S1, S2 Respiratory: Yes: WNL, Regular, CTA Bilaterally Gastrointestinal: Yes: WNL, Normal Bowel Sounds, Soft ...Rectal Exam: Yes: Deferred Renal/: Yes: WNL Breast(s): Yes: WNL Musculoskeletal: Yes: WNL Extremities: Yes: WNL Edema: No Peripheral Pulses WNL: Yes Neurological: Yes: WNL, Alert, Oriented, Cran Nerves II-XII Intact ...Motor Strength: WNL Psychiatric: Yes: WNL, Alert, Oriented Labs: CBC, BMP 11/10/19 07:08 11/10/19 07:08 Hospitalist Encounter Assessment: 34 year-old female with PMH significant for anemia, admitted for syncope, UTI, fever, r/o COVID. Syncope --troponin neg x 3 --ECG: no acute ischemia --telemetry monitoring --echo: LV normal, RV normal, mild TR --US carotids: no significant stenosis; high speed systolic velocity both common carotids and proximal left internal carotid, may be related to HTN --cardiology following --CXR unremarkable --CTA negative for PE --US b/l LE: negative for DVT --orthostatics Microcytic anemia --Hgb 10.3, no baseline for comparison; was told 10 years ago she was anemic, has not been treated --menses are regular, LMP early last week; has IUD --iron studies LFGNB UTI --fever to 103.1 --continue ceftriaxone r/o COVID --swabbed 11/08 pending --episodes of SOB, altered taste, loss of appetite, weight loss over past few weeks, headache, fever --chest imaging unremarkable --empiric azithro started --albuterol inhaler FEN Fluids: NS@100mL/hr Electrolytes: replete as indicated Nutrition: regular diet DVT prophylaxis: subq lovenox Dispo: continues to require inpatient care. Full code. Critical Care Total Critical Care Time (in minutes): 32 Critical Care Statement: The care of this patient involved high complexity decision making to prevent further life threatening deterioration of the patient's condition and/or to evaluate & treat vital organ system(s) failure or risk of failure.
[2019-11-10] MEDS ORDERED: PT OWN MED DRAWER 7, Y5N ONE (21:54)
[2019-11-10] MEDS ORDERED: AZITHROMYCIN IVPB 250 MG in DEXTROSE 5%-WATER - 250 ML IVPB SCH (22:00)
[2019-11-11] MEDS: ALBUTEROL SO4 HFA INHALER IH SCH ×6 (02:31→22:03)
[2019-11-11] MEDS: SODIUM CHLORIDE 1,000 ML IV SCH ×2 (06:33→17:35)
[2019-11-11 07:24] LABS: BASO % 0.6 % (0-2.0); EOS % 1.8 % (0-4.5); HEMATOCRIT 30.3 % (32.4-45.2); HEMOGLOBIN 9.6 GM/dL (10.7-15.3); LYMPH % 21.9 % (8-40); MCH 25.4 pg (25.7-33.7); MCHC 31.8 g/dl (32.0-36.0); MEAN CELL VOLUME 79.9 fl (80-96); MEAN PLT VOLUME 7.9 fl (7.5-11.1); MONO % 11.6 % (3.8-10.2); NEUT % 64.1 % (42.8-82.8); PLATELET COUNT 263 K/MM3 (134-434); RBC 3.79 M/mm3 (3.60-5.2); RDW 16.7 % (11.6-15.6); WHITE BLOOD COUNT 6.7 K/mm3 (4.0-10.0)
[2019-11-11 07:59] LABS: BILIRUBIN,TOTAL 0.3 mg/dL (0.2-1); BLOOD UREA NITROGEN 8.4 mg/dL (7-18); CALCIUM 8.8 mg/dL (8.5-10.1); CREATININE 0.6 mg/dL (0.55-1.3); MAGNESIUM 2.2 mg/dL (1.8-2.4); POTASSIUM 3.8 mmol/L (3.5-5.1)
[2019-11-11] MEDS ORDERED: DEXTROSE 5%-WATER - 50 ML IVPB ONE (09:36)
[2019-11-11] MEDS ORDERED: cefTRIAXone SODIUM 1 GM VIAL ONE (09:36)
[2019-11-11] MEDS: ENOXAPARIN NA (PORCINE) 40 MG/0.4 ML DISP.SYRIN SQ SCH (09:38)
[2019-11-11] MEDS: ZINC SULFATE 220 MG CAPSULE (FP) PO SCH (09:38)
[2019-11-11] MEDS: CEFTRIAXONE 1 GM in DEXTROSE 5%-WATER - 50 ML IVPB SCH (09:38)
[2019-11-11] MEDS ORDERED: MULTIVITAMINS (DAILY MVI) TABLET (FP) PO SCH (10:00)
[2019-11-11] MEDS: FERROUS SO4 325 MG TABLET (FP) PO SCH (10:52)
[2019-11-11] MEDS: ASCORBIC ACID 500 MG TABLET (FP) PO SCH (10:52)
--- NOTE | 2019-11-11 11:19 | PN ---
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[email or web address]- Saturday had some lowgraade fever and came home early from work Saturday felt fatigue, no cough, has not had a good appetite for 2 weeks now no nausea or vomiting no diarrhea no sore throat felt improved on Saturday on Saturday fainted at home and was brought to ED notes urinary frequency now with positive urine cultures chest cta no PE, no infiltrates agreeable to HIV testing- will order fevers secondary to UTI UTI- continue rocephin, switch to po bactrim when ready for discharge d/c zithromax f/u covid 19 pcr- isolation for now--elevated inflammatory makres, if negative will need to be addressed as outpt syncope- per cardiolgy, multifactorial Problem List - Problems (1) Fever Code(s): R50.9 - FEVER, UNSPECIFIED (2) UTI (urinary tract infection) Code(s): N39.0 - URINARY TRACT INFECTION, SITE NOT SPECIFIED (3) Syncope Code(s): R55 - SYNCOPE AND COLLAPSE
--- NOTE | 2019-11-11 11:55 | PN ---
Progress Note (short form) - Note Progress Note: cc: syncope, chest pain s: no chest pain, palps, dizziness, dyspnea, syncope. feels better today Current Medications Generic Name Dose Route Start Last Admin Trade Name Morgan PRN Reason Stop Dose Admin Acetaminophen 650 mg 11/10/19 20:34 Tylenol - PO Q6H PRN FEVER Albuterol Sulfate 2 puff 11/10/19 13:45 11/11/19 09:38 Ventolin Hfa Inhaler - IH 2 puff Q4H ALEAH Administration Ascorbic Acid 500 mg 11/11/19 10:45 11/11/19 10:52 Vitamin C - PO 500 mg DAILY ALEAH Administration Enoxaparin Sodium 40 mg 11/10/19 13:45 11/11/19 09:38 Lovenox - SQ 40 mg DAILY ALEAH Administration Ferrous Sulfate 325 mg 11/11/19 10:45 11/11/19 10:52 Feosol - PO 325 mg DAILY ALEAH Administration Azithromycin 250 mg/ Dextrose 250 mls @ 250 mls/hr 11/10/19 22:00 11/10/19 22:07 IVPB 11/13/19 22:59 250 mls/hr DAILY@2200 ALEAH Administration Ceftriaxone Sodium 1 gm/ 50 mls @ 100 mls/hr 11/11/19 10:00 11/11/19 09:38 Dextrose IVPB 100 mls/hr DAILY ALEAH Administration Protocol Sodium Chloride 1,000 mls @ 100 mls/hr 11/10/19 16:36 11/11/19 06:33 Normal Saline - IV 100 mls/hr ASDIR ALEAH Administration Zinc Sulfate 220 mg 11/11/19 10:00 11/11/19 09:38 Orazinc - PO 220 mg DAILY ALEAH Administration Vital Signs Period Temp Pulse Resp BP Sys/Amador Pulse Ox Last 24 Hr 98 F-100.7 F 68-96 18-18 89-116/56-66 99-100 Constitutional: Yes: Well Nourished, No Distress, Calm Eyes: Yes: Conjunctiva Clear, EOM Intact HENT: Yes: Atraumatic, Normocephalic Neck: Yes: Supple, Trachea Midline Respiratory: Yes: Regular, CTA Bilaterally Gastrointestinal: Yes: Normal Bowel Sounds, Soft Cardiovascular: Yes: Regular Rate and Rhythm JVD: No Heart Sounds: Yes: S1, S2 Musculoskeletal: No: Back Pain Extremities: No: Cold Edema: No Integumentary: No: Jaundice Neurological: Yes: Alert, Oriented Psychiatric: No: Agitated Assessment/Plan EKG: sinus, nl intervals, no ischemic changes CTA chest: no PE, no acute pathology echo 11/2019 nl LV/RV function, mild TR tele: sinus, ST syncope - trop neg x 3, EKG no ischemic changes - not c/w ACS - echo unremarkable - carotid ultrasound no significant stenosis - likely vasovagal vs orthostatic in setting of underlying infection - infectious workup per primary, COVID pending - dc tele UTI - abx per primary anemia - manage per primary
--- NOTE | 2019-11-11 13:06 | PN ---
Teaching Attending Note Name of Resident: Yefri Webster ATTENDING PHYSICIAN STATEMENT I saw and evaluated the patient. I reviewed the resident's note and discussed the case with the resident. I agree with the resident's findings and plan as documented. SUBJECTIVE: Seen and examined at bedside. Patient denies chest pain shortness of breath, pa lpitations, dizziness at time of exam. Urine culture positive for pansensitive E. coli. Patient reports intermittent feeling as if her chest is tight and her "heart is working overtime." Low-grade fevers overnight. Syncope work-up negative. Patient downgraded from telemetry. Pending COVID test. OBJECTIVE: Last Vital Signs Temp Pulse Resp BP Pulse Ox 98.3 F 85 18 111/60 99 11/11/19 08:50 11/11/19 08:50 11/11/19 08:50 11/11/19 08:50 11/11/19 08:00 PE: per resident note Labs/Imaging: reviewed ASSESSMENT AND PLAN: 34-year-old female past medical history of anemia presents with syncope, fevers, loss of taste, and found to have a UTI. Pending COVID work-up. #Syncope Likely represents manifestations of acute illness from UTI and possibly COVID. CTA, carotid ultrasound, telemetry all negative, Pending orthostatics Seen by cardiology: Cleared for downgrade to floor #Urinary tract infection Culture positive for pansensitive E. coli switch to nitrofuratoin, discontinue ceftriaxone #Rule out COVID Concerning symptoms include fever, elevated d-dimer, CRP, INR, malaise and loss of taste. CT chest without infiltrates Follow-up COVID test Azithromycin, vitamins, Full dose anticoagulation pending positive results #Iron deficiency anemia Oral iron therapy Obtain menstrual history
[2019-11-11] MEDS ORDERED: ENOXAPARIN NA (PORCINE) 40 MG/0.4 ML DISP.SYRIN SQ ONE (16:07)
--- NOTE | 2019-11-11 18:52 | CONS ---
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 She works in [email or web address] and has been doing a 1 to 1 with 1 child there. On Saturday, she developed a low-grade fever while she was there Saturday morning. She came home. She subsequently felt fatigued, no cough, had some myalgia, this was on Saturday. On Saturday, she actually felt a little bit better. She reports that for about 2 weeks she really has not had any appetite and has been eating poorly. She reports about a 5-pound weight loss. On Saturday, she was feeling better. She has 2 children, a 3-year-old and a 15-year-old. Her 3-year-old asked her to get something from the kitchen. On her return back to laying down, she reports that she passed out and fell to the floor. She was brought to the emergency room for further evaluation. She reports she has had a poor appetite. She has noted urinary frequency and wondered if she had a UTI. She has no back pain. She has no sore throat. She has not had any cough or shortness of breath. PAST MEDICAL HISTORY: Notable for anemia. She has had a finger laceration. She has 2 children, 15 and 3. She had a for the 2nd child. SOCIAL HISTORY: She lives with her and her 2 children. She is originally from [place]. She has been here for 2 years now. has been working from home. She has been going to [email or web address] daily. 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 She works as a [employer]. She denies any cigarette, alcohol, or substance use. Reports the last time she was HIV tested, she was HIV negative. No cigarette, alcohol, or substance use. No known drug allergies. She has had no travel out of the area, and does not take any medications regularly. REVIEW OF SYSTEMS: Notable for the loss of appetite and the urinary frequency. She has had no diarrhea. She has had no vomiting, cough, or shortness of breath, and no sick contacts. PHYSICAL EXAMINATION: Vital Signs: Temperature 98.3, pulse 76, blood pressure 111/60, respiratory rate 18, she is saturating 99% on room air. This is hospital day number 3. Her fever was as high as 103 on the 7th. HEENT: Normocephalic. Eyes are anicteric. She had braces. She has no pharyngitis or thrush. She has had no recent dental work. Neck: Supple. Lungs: Clear to auscultation. Heart: Regular rate and rhythm. Abdomen: She has no CVA or suprapubic pain. Extremities: Without edema. Skin: Without rash. She reports she had a rash on both her ankles about a month ago that resolved. LABORATORY: White count is 6.7, hemoglobin 9.6, platelets are 263. Her D-dimer is 759. BUN and creatinine are 8 and 0.6 with normal LFTs. CRP is 8. Urinalysis had 20 white cells. test is negative. COVID serology is pending. Urine culture is a pansensitive E. coli. Multiple imaging studies, she had a CTA of her chest that showed no evidence of PE or acute pathology. She had duplex of her leg that was negative. She had carotid study that was negative as well. She had an echo that was normal. IMPRESSION: 1. In summary, this is a 34-year-old woman, fever secondary to Escherichia coli urinary tract infection. Would continue Rocephin, switch to oral Bactrim when ready for discharge. Would stop the Zithromax. Follow up the COVID PCR with the loss of taste and the elevated inflammatory markers, this is certainly a consideration. 2. Syncope management Procardia multifactorial. Michael [id number]
--- NOTE | 2019-11-11 20:27 | PN ---
Physical Exam: SUBJECTIVE: 34 year old female patient with past medical history of anemia, who presented to the ED due to syncope, seen and examined at bedside. The patient reported how since May she has had lightheadedness, a feeling of a fast heart rate, and headaches that come and go together. She reports that some days she feels fine, while others she feels these symptoms. She reports that she has had these types of symptoms in the past as a teenager, but that the symptoms went away until this May when the symptoms came back. The symptoms are not affected by location and are not affected by the season. Over the weekend the patient passed out 4 or 5 times but only for a few seconds each time. She decided to go to the ED because she felt she needed to get worked up for her symptoms. Today the patient reported feeling fine and denied lightheadedness, shortness of breath, palpitations, a feeling of a fast heart rate, fatigue, dysuria, or nausea. OBJECTIVE: Vital Signs Period Temp Pulse Resp BP Sys/Amador Pulse Ox Last 24 Hr 98 F-98.6 F 68-110 18-18 89-121/56-73 99-100 GENERAL: The patient is awake, alert, and fully oriented, in no acute distress. HEAD: Normal with no signs of trauma. EYES: Extraocular movements intact. No ptosis. ENT: Ears normal, nares patent, moist mucous membranes. NECK: Trachea midline, full range of motion, supple. LUNGS: Breath sounds equal, clear to auscultation bilaterally, no wheezes, no crackles, no accessory muscle use. HEART: Regular rate and rhythm, S1, S2 without murmur, rub or gallop. ABDOMEN: Soft, nontender, nondistended, normoactive bowel sounds, no guarding, no rebound, no masses. EXTREMITIES: 2+ pulses, warm, well-perfused, no edema. NEUROLOGICAL: Normal speech, gait not observed. PSYCH: Normal mood, normal affect. SKIN: Warm, dry, normal turgor, no rashes or lesions noted Laboratory Results - last 24 hr 11/11/19 11/11/19 11/11/19 06:53 06:53 06:53 WBC 6.7 RBC 3.79 Hgb 9.6 L Hct 30.3 L MCV 79.9 L MCH 25.4 L MCHC 31.8 L RDW 16.7 H Plt Count 263 MPV 7.9 Absolute Neuts (auto) 4.3 Neutrophils % 64.1 Lymphocytes % 21.9 Monocytes % 11.6 H Eosinophils % 1.8 Basophils % 0.6 Nucleated RBC % 0 D-Dimer 759 H Sodium 139 Potassium 3.8 Chloride 107 Carbon Dioxide 24 Anion Gap 7 L BUN 8.4 Creatinine 0.6 Est GFR (CKD-EPI)AfAm 139.78 Est GFR (CKD-EPI)NonAf 120.61 Random Glucose 89 Calcium 8.8 Magnesium 2.2 Iron 19 L TIBC 263 Iron Saturation 7 L Unsaturated IBC 244 Ferritin 48.9 Total Bilirubin 0.3 AST 9 L ALT 13 Alkaline Phosphatase 51 LD Total 102 C-Reactive Protein 8.0 H Total Protein 7.0 Albumin 3.0 L Active Medications Generic Name Dose Route Start Last Admin Trade Name Freq PRN Reason Stop Dose Admin Acetaminophen 650 mg 11/10/19 20:34 Tylenol - PO Q6H PRN FEVER Albuterol Sulfate 2 puff 11/10/19 13:45 11/11/19 18:27 Ventolin Hfa Inhaler - IH 2 puff Q4H ALEAH Administration Ascorbic Acid 500 mg 11/11/19 10:45 11/11/19 10:52 Vitamin C - PO 500 mg DAILY ALEAH Administration Enoxaparin Sodium 40 mg 11/10/19 13:45 11/11/19 09:38 Lovenox - SQ 40 mg DAILY ALEAH Administration Ferrous Sulfate 325 mg 11/11/19 10:45 11/11/19 10:52 Feosol - PO 325 mg DAILY ALEAH Administration Ceftriaxone Sodium 1 gm/ 50 mls @ 100 mls/hr 11/11/19 10:00 11/11/19 09:38 Dextrose IVPB 100 mls/hr DAILY ALEAH Administration Protocol Sodium Chloride 1,000 mls @ 100 mls/hr 11/10/19 16:36 11/11/19 17:35 Normal Saline - IV 100 mls/hr ASDIR ALEAH Administration Zinc Sulfate 220 mg 11/11/19 10:00 11/11/19 09:38 Orazinc - PO 220 mg DAILY ALEAH Administration ASSESSMENT/PLAN: 34 year old female patient with past medical history of anemia, who presented to the ED due to syncope. 1. Syncope secondary to UTI and possible COVID (COVID lab test pending) vs. vasovagal syncope - Patient reports feeling lightheaded sometimes with several syncopal episodes of a few seconds each over the weekend. - D-Dimer elevated - ECHO showed only mild tricuspid regurgitation - Orthostatics on 11/08 showed an increase of heart rate from 101 while sitting to 129 standing, but blood pressure was 110/66 sitting and 109/59 standing - Orthostatics on 11/10 showed similar results as from 11/08: heart rate of 89 sitting to 110 standing, but blood pressure was 115/73sitting and 111/69 standing - Orthostatics on 11/08 and 11/10 would be positive due to the heart rate increasing > 20 from sitting to standing, despite the blood pressure not falling that much Plan: - Repeat D-Dimer, LDH, CRP, Ferritin, CMP - Waiting for COVID lab result 2. UTI - Urine Culture showed E Coli - Urinalysis positive for nitrites - Patient denies dysuria Plan: - The patient is taking Ceftriaxone 3. Iron Deficiency Anemia - Hgb of 9.6, MCV 79.9, Iron 19, TIBC 263, Iron saturation 7, Ferritin 48.9 Plan: - The patient is taking Ferrous Sulfate 4. Elevated D-Dimer possibly secondary to UTI or possible COVID (COVID lab test pending) - D-Dimer of 759 - CTA chest shows no PE - Doppler U/S showed no DVT DVT Px - Enoxaparin Visit type - Emergency Visit Emergency Visit: Yes ED Registration Date: 11/09/19 Care time: The patient presented to the Emergency Department on the above date and was hospitalized for further evaluation of their emergent condition. - New Patient This patient is new to me today: Yes Date on this admission: 11/11/19 - Critical Care Critical Care patient: No ATTENDING PHYSICIAN STATEMENT I saw and evaluated the patient. I reviewed the resident's note and discussed the case with the resident. I agree with the resident's findings and plan as documented. SUBJECTIVE: OBJECTIVE: ASSESSMENT AND PLAN:
[2019-11-12] MEDS: ALBUTEROL SO4 HFA INHALER IH SCH ×5 (02:12→13:13)
[2019-11-12 07:59] LABS: INR 1.25 (0.83-1.09); PROTHROMBIN TIME (PATIENT) 14.8 SEC (9.7-13.0)
[2019-11-12 08:10] LABS: BASO % 0.5 % (0-2.0); EOS % 2.4 % (0-4.5); HEMATOCRIT 29.5 % (32.4-45.2); HEMOGLOBIN 9.3 GM/dL (10.7-15.3); LYMPH % 33.6 % (8-40); MCH 25.2 pg (25.7-33.7); MCHC 31.5 g/dl (32.0-36.0); MEAN CELL VOLUME 79.8 fl (80-96); MEAN PLT VOLUME 8.1 fl (7.5-11.1); MONO % 9.1 % (3.8-10.2); NEUT % 54.4 % (42.8-82.8); PLATELET COUNT 270 K/MM3 (134-434); RBC 3.69 M/mm3 (3.60-5.2); RDW 16.7 % (11.6-15.6); WHITE BLOOD COUNT 5.4 K/mm3 (4.0-10.0)
[2019-11-12 08:20] LABS: ALBUMIN 2.8 g/dl (3.4-5.0); BILIRUBIN,TOTAL 0.3 mg/dL (0.2-1); BLOOD UREA NITROGEN 11.7 mg/dL (7-18); CALCIUM 8.4 mg/dL (8.5-10.1); CREATININE 0.7 mg/dL (0.55-1.3); PHOSPHOROUS 4.3 mg/dL (2.5-4.9); POTASSIUM 4.1 mmol/L (3.5-5.1); TOT PROT 6.9 g/dl (6.4-8.2)
[2019-11-12] MEDS ORDERED: DEXTROSE 5%-WATER - 50 ML IVPB ONE (08:55)
[2019-11-12] MEDS ORDERED: cefTRIAXone SODIUM 1 GM VIAL ONE (08:55)
[2019-11-12] MEDS: ENOXAPARIN NA (PORCINE) 40 MG/0.4 ML DISP.SYRIN SQ SCH (09:11)
[2019-11-12] MEDS: ASCORBIC ACID 500 MG TABLET (FP) PO SCH (09:12)
[2019-11-12] MEDS: CEFTRIAXONE 1 GM in DEXTROSE 5%-WATER - 50 ML IVPB SCH (09:12)
[2019-11-12] MEDS: FERROUS SO4 325 MG TABLET (FP) PO SCH (09:12)
[2019-11-12] MEDS: ZINC SULFATE 220 MG CAPSULE (FP) PO SCH (09:12)
--- NOTE | 2019-11-12 10:50 | PN ---
Progress Note (short form) - Note Progress Note: cc: syncope, chest pain s: no chest pain, palps, dizziness, dyspnea, syncope. feels better today Current Medications Generic Name Dose Route Start Last Admin Trade Name Morgan PRN Reason Stop Dose Admin Acetaminophen 650 mg 11/10/19 20:34 Tylenol - PO Q6H PRN FEVER Albuterol Sulfate 2 puff 11/10/19 13:45 11/12/19 09:49 Ventolin Hfa Inhaler - IH Not Given Q4H ALEAH Ascorbic Acid 500 mg 11/11/19 10:45 11/12/19 09:12 Vitamin C - PO 500 mg DAILY ALEAH Administration Enoxaparin Sodium 40 mg 11/10/19 13:45 11/12/19 09:11 Lovenox - SQ 40 mg DAILY ALEAH Administration Ferrous Sulfate 325 mg 11/11/19 10:45 11/12/19 09:12 Feosol - PO 325 mg DAILY ALEAH Administration Ceftriaxone Sodium 1 gm/ 50 mls @ 100 mls/hr 11/11/19 10:00 11/12/19 09:12 Dextrose IVPB 100 mls/hr DAILY ALEAH Administration Protocol Sodium Chloride 1,000 mls @ 100 mls/hr 11/10/19 16:36 11/11/19 17:35 Normal Saline - IV 100 mls/hr ASDIR ALEAH Administration Zinc Sulfate 220 mg 11/11/19 10:00 11/12/19 09:12 Orazinc - PO 220 mg DAILY ALEAH Administration Vital Signs Period Temp Pulse Resp BP Sys/Amador Pulse Ox Last 24 Hr 97.9 F-98.3 F 70-110 18-18 100-122/53-73 99 Constitutional: Yes: Well Nourished, No Distress, Calm Eyes: Yes: Conjunctiva Clear Respiratory: Yes: Regular, CTA Bilaterally Gastrointestinal: Yes: Normal Bowel Sounds, Soft Cardiovascular: Yes: Regular Rate and Rhythm JVD: No Heart Sounds: Yes: S1, S2 Musculoskeletal: No: Back Pain Extremities: No: Cold Edema: No Integumentary: No: Jaundice Neurological: Yes: Alert, Oriented Psychiatric: No: Agitated CBC, BMP 11/12/19 05:36 11/12/19 05:36 Assessment/Plan EKG: sinus, nl intervals, no ischemic changes CTA chest: no PE, no acute pathology echo 11/2019 nl LV/RV function, mild TR tele: sinus syncope - trop neg x 3, EKG no ischemic changes - not c/w ACS - echo unremarkable - carotid ultrasound no significant stenosis - likely vasovagal vs orthostatic in setting of underlying infection UTI - abx per primary anemia - manage per primary
[2019-11-12] MEDS: SODIUM CHLORIDE 1,000 ML IV SCH (13:52)
--- NOTE | 2019-11-12 16:55 | DS ---
Physical Exam: SUBJECTIVE: Patient seen and examined at bedside. 34 year old female patient with past medical history of anemia, who presented to the ED due to syncope. The patient reports that since coming to the hospital she has not felt lightheaded, tachycardic, or had a headache. The patient also reports that her urinary frequency has gone down since receiving antibiotics for her UTI. OBJECTIVE: Vital Signs Period Temp Pulse Resp BP Sys/Amador Pulse Ox Last 24 Hr 97.9 F-98.4 F 70-122 18-20 100-122/53-76 99 PHYSICAL EXAM GENERAL: The patient is awake, alert, and fully oriented, in no acute distress. HEAD: Normal with no signs of trauma. EYES: Extraocular movements intact. ENT: Ears normal, nares patent, oropharynx clear without exudates, moist mucous membranes. NECK: Trachea midline, full range of motion, supple. LUNGS: Breath sounds equal, clear to auscultation bilaterally, no wheezes, no crackles, no accessory muscle use. HEART: Regular rate and rhythm, S1, S2 without murmur, rub or gallop. ABDOMEN: Soft, nontender, nondistended, normoactive bowel sounds, no guarding, no rebound, no masses. EXTREMITIES: 2+ pulses, warm, well-perfused, no edema. NEUROLOGICAL: Normal speech, gait not observed. PSYCH: Normal mood, normal affect. SKIN: Warm, dry, normal turgor, no rashes or lesions noted. LABS Laboratory Results - last 24 hr 11/12/19 11/12/19 11/12/19 05:36 05:36 05:36 WBC 5.4 RBC 3.69 Hgb 9.3 L Hct 29.5 L MCV 79.8 L MCH 25.2 L MCHC 31.5 L RDW 16.7 H Plt Count 270 MPV 8.1 Absolute Neuts (auto) 3.0 Neutrophils % 54.4 Lymphocytes % 33.6 D Monocytes % 9.1 Eosinophils % 2.4 Basophils % 0.5 Nucleated RBC % 0 PT with INR INR D-Dimer Sodium 137 Potassium 4.1 Chloride 106 Carbon Dioxide 24 Anion Gap 7 L BUN 11.7 Creatinine 0.7 Est GFR (CKD-EPI)AfAm 132.87 Est GFR (CKD-EPI)NonAf 114.64 Random Glucose 80 Calcium 8.4 L Phosphorus 4.3 Magnesium 2.0 Ferritin 50.1 Total Bilirubin 0.3 AST 12 L ALT 19 Alkaline Phosphatase 53 LD Total 96 C-Reactive Protein 5.7 H Total Protein 6.9 Albumin 2.8 L HIV Ag/Ab Combo Qual Negative 11/12/19 11/12/19 05:36 05:36 WBC RBC Hgb Hct MCV MCH MCHC RDW Plt Count MPV Absolute Neuts (auto) Neutrophils % Lymphocytes % Monocytes % Eosinophils % Basophils % Nucleated RBC % PT with INR 14.80 H INR 1.25 H D-Dimer 717 H Sodium Potassium Chloride Carbon Dioxide Anion Gap BUN Creatinine Est GFR (CKD-EPI)AfAm Est GFR (CKD-EPI)NonAf Random Glucose Calcium Phosphorus Magnesium Ferritin Total Bilirubin AST ALT Alkaline Phosphatase LD Total C-Reactive Protein Total Protein Albumin HIV Ag/Ab Combo Qual HOSPITAL COURSE: Date of Admission:11/12/19 34 year old female patient with past medical history of anemia, who presented to the ED due to syncope. She reported that she has had similar symptoms as a teenager, which have since self-resolved and not been present until this May, when she again began to feel similar symptoms of lightheadedness, tachycardia, and headache, with occasional fainting spells. She reports that when she faints it is only for a few seconds each time. The patient was found to have anemia and a UTI during her hospital course. She was given antibiotics with resolution of her UTI symptom, and counseled about taking iron supplements for her anemia. Orthostatics showed an increase in heart rate of 20-30 from sitting to standing, which makes the orthostatics tests positive; however the patient denied any symptoms of lightheadedness during the orthostatics tests and her blood pressure did not drop significantly during any of the tests. A COVID test was sent out but lost, so the patient was instructed about self-quarantine in case her syncope was secondary to COVID. Date of Discharge: 11/12/19 Minutes to complete discharge: 39 Discharge Summary Problems reviewed: Yes Reason For Visit: BRANDON / SYNCOPE Current Active Problems Anemia (Chronic) Condition: Good - Instructions Diet, Activity, Other Instructions: You were admitted to the hospital for losing consciousness, fevers, and shortness of breath. While in the hospital, you were evaluated with lab work, blood work, imaging including CAT scans of your chest and echocardiogram of your heart. Your symptoms were likely due to a urinary tract infection. For this you were treated with antibiotics and your symptoms resolved. While you were here, your lab work also showed you were anemic for which we will send you home on supplemental iron pills We also took a COVID19 test from you, which has not come back. So until you have been declared negative for COVID19 from the results of the test, please take all the necessary precaution as instructed Please Self-Quarantine youself at home for 7-14 days after discharge from the hospital. Please do not come in contact with others while you are under quarantine. If you have family at home, please take all necessary isolation precaution to maintain quarentine from them, especially from children, infants and elderly. You will need to call back for the results of your COVID test. To continue the treatment of your urinary tract infection, please take the following medications as instructed Please START taking Bactrim 1 tab twice daily for 2 more days starting tomorrow 11/12 and ending 11/13. Please START taking Ferrous Sulphate 325 mg daily Please also START taking Docusate 100 mg twice daily and senna 1 tab daily as needed to prevent constipation Please take all your medications as prescribed Please follow up with Dr. Zhao the pillow agent, if your symptoms return. Please follow up with your primary care physician within 1 week or the one we have arranged for you Dr. Huertas. Return to the emergency room, if your experience worsening of your symptoms, chest pain, abdominal pain or any worsening of your symptoms. Referrals: Irena Zhao MD [Staff Physician] - 1 Week Wayne Meade MD [Staff Physician] - 1 Week Disposition: HOME - Home Medications Comprehensive Discharge Medication List: Ambulatory Orders Docusate Sodium [Docusate 100 mg] 100 mg PO BID #30 cap 11/12/19 Ferrous Sulfate 325 mg PO DAILY #30 tablet 11/12/19 Sennosides [Senna] 8.8 mg PO DAILY #30 ml 11/12/19 Sulfamethoxazole/Trimethoprim [Bactrim Ds -] 1 tab PO BID #4 tablet 11/12/19 This patient is new to me today: No Emergency Visit: Yes ED Registration Date: 11/12/19 Care time: The patient presented to the Emergency Department on the above date and was hospitalized for further evaluation of their emergent condition. Critical Care patient: No - Discharge Referral Referred to [facility] No ATTENDING PHYSICIAN STATEMENT I saw and evaluated the patient. I reviewed the resident's note and discussed the case with the resident. I agree with the resident's findings and plan as documented. SUBJECTIVE: OBJECTIVE: ASSESSMENT AND PLAN:
[2019-11-12 18:38] VITALS: BP 108/67; PULSE 86; TEMP 98
== END 2019-11-12 19:00 | disposition home or self-care (01) | DRG 463 ==
LOC: FER 11:03 → INTOOBSV 13:40 → FM/S 13:40 → J4S 11-10 16:17 → OBSVTOIN 11-12 08:02
PROVIDERS: ADMIT Internal Medicine; ATTEND Internal Medicine
DX: N39.0 Urinary tract infection, site not specified (principal); B96.1 Klebsiella pneumoniae [K. pneumoniae] as the cause of diseases classified elsewhere; D50.9 Iron deficiency anemia, unspecified; R55 Syncope and collapse; R63.4 Abnormal weight loss; Z68.23 Body mass index [BMI] 23.0-23.9, adult; R63.0 Anorexia; R07.1 Chest pain on breathing; R35.0 Frequency of micturition
CPT/HCPCS: 36415; 70450-TC; 71045-TC-FY; 71275-TC; 80053; 81003; 81015; 81025; 82550; 82728; 82803; 82962; 83036; 83540; 83550; 83605; 83615; 83735; 84100; 84443; 84484; 84703; 85025; 85379; 85610; 85730; 86140; 87040; 87086; 87186; 87389; 93005; 93306-TC; 93880-TC; 93970-TC; 99285-25; G0378; J0131; Q9967; U0003